=== PATIENT | female | born 1965 | race Caucasian/White ===

== ENCOUNTER 2016-04-12 20:57 | Emergency (ER) | payer BC, MEDICARE ==
[~2016-04-12 20:57] MED LIST: *UNABLE3; ACETSUP325 PR; ADVAIR115P INH; ADVAIR250 INH; AMIT10 PO; AMIT25 PO; ARTHROTEC 50 PO; ASA5GR PO; ASAB PO; ASABAYER PO; BACLOFEN PO; BACLOFEN20 MG PO; BIST; BRILINTA90 MG PO; CHANTIX0.5 PO; COREG12 PO; COREG3 PO; COREG6 PO; COZ25 PO; COZ50 PO; DIABET2.5 PO; DULERA 100 MCG/13 GM INH; DULERA 200 MCG/13 GM INH; DURA25 TOP; EFFIENT10 PO; EMBRIL; ENDOCET1 TA3 PO; FERROUS SULF325 M1 PO; FOLIC PO; FORMOTEROL INH; FORTAMET500 MG PO; GLUCOPHAGE1000 MG PO; GLUCOV2.5 PO; GLUCPH PO; HABIT14 TOP; HALF81 PO; IMDUR30 PO; IMDUR60 PO; ISOSORB DIN30 MG PO; KLOR-CON20 MEQ PO; L40 PO; LEVAQUIN750 MG PO; LEXAPRO10 PO; LIOR10 PO; LIPITOR10 PO; LIPITOR40 PO; LOP25 PO; LOP50 PO; LORT7 PO; METHOTREXATE INJ IM; METHOTREXATE PO; METHOTREXATE25 MG/ML IV; METHOTREXATE25 MG/ML SC; MEXATE250 SC; MINITRAN0.2 MG/HR TOP; MOMETASONE INH; MOMUD; MVI PO; NEUR300 PO; NEUR400 PO; NITROII20C TOP; NITROQUICK0.4 MG SL; NITROSTAT0.4 MG PO; NITROSTAT0.4 MG SL; NORCO1 TAB PO; NORV10 PO; NUIRONCAP PO; P10 PO; PERCOCET1 TA4 PO; PLAVIX PO; PRAVAC PO; PRAVACHOL40 MG PO; PREV15 PO; PRILO PO; PRIN2.5 PO; PROAIR HFA INH; PROTONIX PO; REMICADE IV; SALONPAS-HOT TOP; SKELAXIN8 PO; SPIRIVA INH; SPIRO25 PO; TRIAMTERENE-HCTZ; VITAMIN B-122500 MCG SL; VITAMIN C PO; ZETIA PO; [UNRECOGNIZED DRUG - CODE]; [UNRECOGNIZED DRUG - OTHER]; [UNRECOGNIZED DRUG - OTHER]; [UNRECOGNIZED DRUG - OTHER]; [UNRECOGNIZED DRUG - REMARK]
[2016-04-12 23:19] LABS: BASOPHILS 0.5 %; BASOPHILS ABSOLUTE 0.04 10/3/uL (0.0-0.16); EOSINOPHILS 1.1 %; ER CBC TAT 0 Hrs 05 Mins; HEMATOCRIT 33.6 % (36.0-48.0); HEMOGLOBIN 9.8 g/dL (12.0-16.0); IMMATURE GRANULOCYTES 0.8 %; IMMATURE GRANULOCYTES ABSOLUTE 0.07 10/3/uL (0.0-0.11); LYMPHOCYTES 27.2 %; LYMPHOCYTES ABSOLUTE 2.38 10/3/uL (0.67-4.30); MANUAL DIFF NO %; MEAN CORPUS HGB CONC 29.2 g/dL (32.0-36.0); MEAN CORPUSCULAR HEMOGLOB 23.2 pg (26.0-34.0); MEAN CORPUSCULAR VOLUME 79.4 fL (80-100); MEAN PLATELET VOLUME 9.2 fL (9.2-13.0); MONOCYTES 8.3 %; MONOCYTES ABSOLUTE 0.73 10/3/uL (0.21-1.20); NEUTROPHILS 62.1 %; NEUTROPHILS ABSOLUTE 5.44 10/3/uL (2.02-8.40); PLATELET COUNT 259 10/3/uL (150-400); RBC DISTRIBUTION WIDTH 26.8 % (12.0-16.0); RED CELL COUNT 4.23 10/6/uL (4.0-5.6); WHITE BLOOD CELLS 8.8 10/3/uL (4.5-10.5)
[2016-04-12 23:28] LABS: INTERNATIONAL NORMAL RATI 1.4 UNITS (-); PROTIME (NOT ORD) 17.3 SEC (12.0-14.5)
[2016-04-12 23:29] LABS: PARTIAL THROMBO TIME 33.1 SEC (22.5-37.2)
[2016-04-12 23:36] LABS: BUN (BLOOD UREA NITROGEN) 11 MG/DL (6-23); CALCIUM, SERUM 8.9 MG/DL (8.5-10.4); CHEST PAIN PROFILE TAT 0 Hrs 22 Mins; CHLORIDE, SERUM 93 MMOL/L (96-112); CO2 (CARBON DIOXIDE) 34 MMOL/L (24-34); CREATININE 1.16 MG/DL (0.55-1.02); GFR AFRICAN AMERICAN 63 ML/MIN (>=60); GFR NON AFRICAN AMERICAN 54 ML/MIN (>=60); POTASSIUM, SERUM 3.2 MMOL/L (3.5-5.3); SODIUM, SERUM 138 MMOL/L (135-148); TROPONIN I <0.02 NG/ML (<0.05)
[2016-04-12 23:39] LABS: GLUCOSE, SERUM 195 MG/DL (60-99)
[2016-05-14] MEDS ORDERED: PERCOCET 10/3251 TAB PO (17:36)
[2016-05-14] MEDS ORDERED: NEUR400 PO (17:39)
[2016-08-20] MEDS ORDERED: LEXAPRO10 PO (18:31)
[2016-08-20] MEDS ORDERED: PRIN2.5 PO (18:31)
[2016-08-23] MEDS ORDERED: LIOR10 PO (06:22)
[2016-10-29] MEDS ORDERED: MONODOX100 MG PO (15:37)
[2016-10-29] MEDS ORDERED: LIPITOR20 PO (15:39)
== END 2016-04-13 02:20 | disposition home or self-care (01) ==
LOC: ER 20:57
PROVIDERS: Emergency Medicine
DX: E87.6 Hypokalemia (principal); J44.9 Chronic obstructive pulmonary disease, unspecified; I25.2 Old myocardial infarction; K21.9 Gastro-esophageal reflux disease without esophagitis; E11.9 Type 2 diabetes mellitus without complications; D64.9 Anemia, unspecified; F32.9 Major depressive disorder, single episode, unspecified; F17.200 Nicotine dependence, unspecified, uncomplicated; Z95.1 Presence of aortocoronary bypass graft; Z98.61 Coronary angioplasty status; Z87.01 Personal history of pneumonia (recurrent); Z88.5 Allergy status to narcotic agent; Z88.1 Allergy status to other antibiotic agents; Z88.8 Allergy status to other drugs, medicaments and biological substances; Z79.82 Long term (current) use of aspirin; Z79.899 Other long term (current) drug therapy
CPT/HCPCS: 71020; 80048; 83735; 84484; 85025; 85610; 85730; 93005; 99285; A9270-GY

== ENCOUNTER 2016-05-19 06:31 | Day surgery (SDC) | payer BC, MEDICARE ==
[2016-05-17 14:07] LABS: BASOPHILS 0.3 %; BASOPHILS ABSOLUTE 0.02 10/3/uL (0.0-0.16); EOSINOPHILS 2.5 %; EOSINOPHILS ABSOLUTE 0.19 10/3/uL (0.0-0.53); IMMATURE GRANULOCYTES 0.4 %; IMMATURE GRANULOCYTES ABSOLUTE 0.03 10/3/uL (0.0-0.11); LYMPHOCYTES 32.7 %; LYMPHOCYTES ABSOLUTE 2.49 10/3/uL (0.67-4.30); MEAN PLATELET VOLUME 9.5 fL (9.2-13.0); MONOCYTES 6.6 %; NEUTROPHILS 57.5 %; NEUTROPHILS ABSOLUTE 4.38 10/3/uL (2.02-8.40); RED CELL COUNT 4.38 10/6/uL (4.0-5.6); WHITE BLOOD CELLS 7.6 10/3/uL (4.5-10.5)
[2016-05-17 14:08] LABS: HEMATOCRIT 41.2 % (36.0-48.0); HEMOGLOBIN 12.9 g/dL (12.0-16.0); MEAN CORPUS HGB CONC 31.3 g/dL (32.0-36.0); MEAN CORPUSCULAR HEMOGLOB 29.5 pg (26.0-34.0); MEAN CORPUSCULAR VOLUME 94.1 fL (80-100); PLATELET COUNT 150 10/3/uL (150-400); RBC DISTRIBUTION WIDTH 20.8 % (12.0-16.0)
[2016-05-17 14:09] LABS: MANUAL DIFF NO %
[2016-05-17 14:20] LABS: BUN (BLOOD UREA NITROGEN) 8 MG/DL (6-23); CALCIUM, SERUM 8.8 MG/DL (8.5-10.4); CO2 (CARBON DIOXIDE) 30 MMOL/L (24-34); CREATININE 0.69 MG/DL (0.55-1.02); GFR AFRICAN AMERICAN 117 ML/MIN (>=60); GFR NON AFRICAN AMERICAN 101 ML/MIN (>=60); POTASSIUM, SERUM 3.5 MMOL/L (3.5-5.3); SODIUM, SERUM 141 MMOL/L (135-148)
[2016-05-17 14:21] LABS: CHLORIDE, SERUM 103 MMOL/L (96-112); GLUCOSE, SERUM 119 MG/DL (60-99)
[2016-05-17 15:52] LABS: ASCORBIC ACID (UR NOT ORDER) NEG (NEG); BILIRUBIN, URINE NEGATIVE (NEG); KETONE, URINE NEGATIVE (NEG); LEUKOCYTE ESTERASE(NOT OR TRACE (NEG); WBC (NOT ORDERED) (RFLEX) 2 (0-5)
--- NOTE | ~2016-05-19 | OP ---
Record Of Operation [facility] [address] [place]. [address] NAME: PHIL CAAL : 63 STATUS : REG [facility]#: [id number] AGE: 50 ADM/REG DATE : 05/19/16 MR#: [id number] REPORT SERV DATE: 05/19/16 DICTATED BY: HECTOR [place] DATE: 05/19/16 REPORT STATUS : Draft TRANSCRIBED BY: MODJeri DATE: 05/19/16 DATE OF PROCEDURE: 05/19/2016 PREOPERATIVE DIAGNOSES: 1. Sternal wound dehiscence, superficial, chronic. 2. Congestive heart failure, chronic, systolic. 3. Type 2 dpx-rkjiepx-iapmgrzuo diabetes mellitus. 4. Obesity. 5. Tobacco abuse. POSTOPERATIVE DIAGNOSES: 1. Sternal wound dehiscence, superficial, chronic. 2. Congestive heart failure, chronic, systolic. 3. Type 2 kra-ejbkixm-mfijcjrvm diabetes mellitus. 4. Obesity. 5. Tobacco abuse. PROCEDURE PERFORMED: Sternal wound debridement and closure. SURGEON: Hector [place] M.D. STEEL SPAR OPERATOR: Angela Montoya. INDICATIONS: This is a 50-year-old female, diabetic with heart failure, who smokes and has peripheral vascular disease. She underwent bypass surgery in February of this year. She had developed breakdown of the inferior aspect of her sternal incision. It was superficial and above the pectoralis fascia. This was debrided and was seen in the office for several weeks. She has had a Vac-Pac in place. I am unaware of cultures at this time. She had been on nafcillin antibiotic infusion at home. On last evaluation, 05/14/2016, it was felt that the wound was granulating well and healing nicely, and should be able to be closed. We discussed with the patient and wished to proceed. FINDINGS AT OPERATION: 1. Good granulation tissue around most of the wound. There was some the superior extent of the wound that was opened for a total length of about 8 cm from the bottom portion of her sternal incision. The infection was superficial to the pectoralis fascia and linea alba. We debrided some of the questionable tissue. No areas of pus were seen. After this was accomplished, the wound was irrigated with pulse lavage and drain placed. 2. The wound was closed over drain. PATHOLOGIC SPECIMENS: None. DESCRIPTION OF PROCEDURE: The patient was brought to the operating suite. General anesthesia was induced. Airway secured with an LMA. The patient's chest and abdomen prepped with Hibiclens and ChloraPrep and draped with Ioban sterile sheets. The wound VAC Record Of [address] [address] NAME: PHIL CAAL : 63 STATUS : REG [facility] PAT#: [id number] AGE: 50 ADM/REG DATE : 05/19/16 MR#: [id number] REPORT SERV DATE: 05/19/16 DICTATED BY: HECTOR [place] DATE: 05/19/16 REPORT STATUS : Draft TRANSCRIBED BY: DAR DATE: 05/19/16 had been removed earlier. The wound was examined. A good granulation tissue alongside the wound; however, there was some deep penetration inferiorly, which was explored and no necrosis and no pus was seen. More cranial along the incision in the midline, there was some tunneling underneath the skin closure and the subcutaneous fat in this area was loosely held together. It was did not appear to be necrotic and did not appear to be infected. At this point, we debrided some of the excess tissue that was questionable and then hemostasis was obtained. The wound was lavaged copiously with 3 L of saline and antibiotic solution. Then, a 19 mm Sudheer drain was placed in the depths of the wound and then the wound closed over the drain with interrupted Vicryl sutures. The skin was closed with deep vertical mattress sutures of Vicryl. The patient tolerated the procedure well. DISPOSITION: A VAC dressing was placed over the skin incision and the patient was extubated and taken to recovery room in stable condition. DIANA/DAR Hector [place] M.D. / [id number] CC: Duane Chacon
[~2016-05-19 06:31] MED LIST changes: +PERCOCET 10/3251 TAB PO
[2016-08-20] MEDS ORDERED: PRIN2.5 PO (18:31)
[2016-08-20] MEDS ORDERED: LEXAPRO10 PO (18:31)
[2016-08-23] MEDS ORDERED: LIOR10 PO (06:22)
[2016-10-29] MEDS ORDERED: MONODOX100 MG PO (15:37)
[2016-10-29] MEDS ORDERED: LIPITOR20 PO (15:39)
== END 2016-05-19 13:46 | disposition home or self-care (01) ==
LOC: SDC 06:31
PROVIDERS: Thoracic Surgery (Cardiothoracic Vascular Surgery)
PROC: 0JB60ZZ Excision of Chest Subcutaneous Tissue and Fascia, Open Approach (ICD-10-PCS; principal; 2016-05-19 07:45)
DX: T81.31XA Disruption of external operation (surgical) wound, not elsewhere classified, initial encounter (principal); I25.10 Atherosclerotic heart disease of native coronary artery without angina pectoris; I11.0 Hypertensive heart disease with heart failure; I50.22 Chronic systolic (congestive) heart failure; I25.5 Ischemic cardiomyopathy; I49.3 Ventricular premature depolarization; E11.40 Type 2 diabetes mellitus with diabetic neuropathy, unspecified; J44.9 Chronic obstructive pulmonary disease, unspecified; K21.9 Gastro-esophageal reflux disease without esophagitis; G47.33 Obstructive sleep apnea (adult) (pediatric); M47.9 Spondylosis, unspecified; M79.7 Fibromyalgia; M45.9 Ankylosing spondylitis of unspecified sites in spine; F17.210 Nicotine dependence, cigarettes, uncomplicated; F32.9 Major depressive disorder, single episode, unspecified; E66.9 Obesity, unspecified; Z68.31 Body mass index [BMI] 31.0-31.9, adult; Z95.1 Presence of aortocoronary bypass graft; Z95.2 Presence of prosthetic heart valve; Z88.1 Allergy status to other antibiotic agents; Z88.5 Allergy status to narcotic agent; Z88.6 Allergy status to analgesic agent; Z88.8 Allergy status to other drugs, medicaments and biological substances; Z79.84 Long term (current) use of oral hypoglycemic drugs; Z79.891 Long term (current) use of opiate analgesic; Z79.2 Long term (current) use of antibiotics; Z79.82 Long term (current) use of aspirin; Z79.51 Long term (current) use of inhaled steroids; Z79.899 Other long term (current) drug therapy; Z87.01 Personal history of pneumonia (recurrent); Z98.51 Tubal ligation status; Z98.890 Other specified postprocedural states
CPT/HCPCS: 71020; 80048; 81001; 82962; 85025; 93005; A9270-GY; J0690; J2250; J2370; J2405; J2710; J2795; J3010

== ENCOUNTER 2016-11-04 16:18 | Emergency (ER) | payer BC, MEDICARE ==
[~2016-11-04 16:18] MED LIST changes: +LIPITOR20 PO; +MONODOX100 MG PO
[2016-11-04 17:01] LABS: BASOPHILS 0.6 %; BASOPHILS ABSOLUTE 0.04 10/3/uL (0.0-0.16); EOSINOPHILS 0.7 %; EOSINOPHILS ABSOLUTE 0.05 10/3/uL (0.0-0.53); IMMATURE GRANULOCYTES 0.4 %; IMMATURE GRANULOCYTES ABSOLUTE 0.03 10/3/uL (0.0-0.11); LYMPHOCYTES 23.3 %; LYMPHOCYTES ABSOLUTE 1.67 10/3/uL (0.67-4.30); MEAN CORPUSCULAR HEMOGLOB 26.3 pg (26.0-34.0); MEAN CORPUSCULAR VOLUME 82.2 fL (80-100); MEAN PLATELET VOLUME 9.9 fL (9.2-13.0); MONOCYTES 6.6 %; MONOCYTES ABSOLUTE 0.47 10/3/uL (0.21-1.20); NEUTROPHILS 68.4 %; RED CELL COUNT 4.94 10/6/uL (4.0-5.6); WHITE BLOOD CELLS 7.2 10/3/uL (4.5-10.5)
[2016-11-04 17:05] LABS: HEMATOCRIT 40.6 % (36.0-48.0); MANUAL DIFF NO %; PLATELET COUNT 182 10/3/uL (150-400)
[2016-11-04 17:19] LABS: CALCIUM, SERUM 9.3 MG/DL (8.5-10.4); CHLORIDE, SERUM 101 MMOL/L (96-112); CREATININE 0.75 MG/DL (0.55-1.02); GFR AFRICAN AMERICAN 106 ML/MIN (>=60); GFR NON AFRICAN AMERICAN 92 ML/MIN (>=60); GLUCOSE, SERUM 185 MG/DL (60-99); POTASSIUM, SERUM 3.1 MMOL/L (3.5-5.3); SGOT(AST) 15 U/L (5-40); SGPT(ALT) 18 U/L (5-65); SODIUM, SERUM 138 MMOL/L (135-148)
[2016-11-04 17:20] LABS: A/G RATIO 0.5 (0.7-1.9); ALBUMIN 2.9 G/DL (3.5-5.0); ALKALINE PHOSPHATASE 96 U/L (45-117); BUN (BLOOD UREA NITROGEN) 4 MG/DL (6-23); CO2 (CARBON DIOXIDE) 29 MMOL/L (24-34); TOTAL BILIRUBIN 0.6 MG/DL (0-1.2); TOTAL PROTEIN 8.9 G/DL (6.0-8.5)
== END 2016-11-04 21:45 | disposition home or self-care (01) ==
LOC: ER 16:18
PROVIDERS: Emergency Medicine
DX: A92.30 West Nile virus infection, unspecified (principal); J44.9 Chronic obstructive pulmonary disease, unspecified; E11.9 Type 2 diabetes mellitus without complications; I11.0 Hypertensive heart disease with heart failure; I50.9 Heart failure, unspecified; F17.200 Nicotine dependence, unspecified, uncomplicated; Z95.1 Presence of aortocoronary bypass graft; Z87.01 Personal history of pneumonia (recurrent); Z95.5 Presence of coronary angioplasty implant and graft; Z88.1 Allergy status to other antibiotic agents; Z88.5 Allergy status to narcotic agent; Z88.8 Allergy status to other drugs, medicaments and biological substances; Z79.82 Long term (current) use of aspirin; Z79.84 Long term (current) use of oral hypoglycemic drugs; Z79.899 Other long term (current) drug therapy
CPT/HCPCS: 71020; 71275; 80053; 85025; 87040; 93005; 99284; A9270-GY; Q9967